=== PATIENT | male | born 1935 | race Caucasian/White ===

== ENCOUNTER 2018-06-14 23:38 | Emergency (ER) | payer OTHER ==
--- NOTE | 2018-06-15 00:18 | EDPHY ---
H & P Stated Complaint: HEMATURIA SINCE 2144 Time Seen by Provider: 06/14/18 23:58 HPI/ROS: Chief Complaint: Hematuria HPI: 83-year-old male has had 2 episodes of hematuria starting approximately 3 hr ago. He has a history of prostate cancer surgery about 15 years ago. He does take warfarin. Does not know his current INR. No back pain. No abdominal pain. No fevers or chills. No urinary urgency or frequency. No dysuria. No nausea or vomiting. Otherwise has been in his usual state of health. ROS: 10 point Review of Systems is negative except as noted in the HPI. Social History: No smoking, no alcohol, no recreational drug use Family History: non-contributory Physical Exam: Gen: Awake, Alert, No Distress HEENT: Nose: no rhinorrhea Eyes: PERRLA, EOMI Mouth: Moist mucosa Neck: Supple, no JVD Chest: nontender, lungs clear to auscultation Heart: S1, S2 normal, no murmur Abd: Soft, non-tender, no guarding Back: no CVA tenderness, no midline tenderness Ext: no edema, non-tender Skin: no rash Neuro: CN II-XII intact, Sensation grossly intact, Strength 5/5 in bilateral upper and lower extremities - Personal History Current Tetanus/Diphtheria Vaccine: Yes Current Tetanus Diphtheria and Acellular Pertussis (TDAP): Yes - Medical/Surgical History Hx Asthma: No Hx Chronic Respiratory Disease: No Hx Diabetes: No Hx Cardiac Disease: Yes Hx Renal Disease: No Hx Cirrhosis: No Hx Alcoholism: No Hx HIV/AIDS: No Hx Splenectomy or Spleen Trauma: No Other PMH: PROSTATE SURGERY. HTN. PACEMAKER - Social History Smoking Status: Never smoked Constitutional: Initial Vital Signs Temperature (C) 36.7 C 06/14/18 23:39 Heart Rate 70 06/14/18 23:39 Respiratory Rate 18 06/14/18 23:39 Blood Pressure 149/84 H 06/14/18 23:39 O2 Sat (%) 95 06/14/18 23:39 O2 Delivery Mode Room Air Allergies/Adverse Reactions: penicillin V Allergy (Verified 06/14/18 23:46) Home Medications: Medication Instructions Recorded Atenolol 06/14/18 Coumadin 06/14/18 Jantoven 06/14/18 Losartan Potassium 06/14/18 Methimazole 06/14/18 Simvastatin 06/14/18 Nitrofurantoin Monohyd/M-Cryst 100 mg PO BID #14 capsule 06/15/18 [Macrobid 100 mg Capsule] Medical Decision Making ED Course/Re-evaluation: Urinalysis shows significant white blood cells and bacteria consistent UT I. Will start on nitrofurantoin. Will refer for outpatient follow-up. Symptoms consistent with hemorrhagic cystitis. - Data Points Laboratory Results: Laboratory Results 06/15/18 00:25 06/15/18 00:11 06/15/18 06/15/18 06/15/18 00:25 00:11 00:11 WBC 9.04 10^3/uL 10^3/uL (3.80-9.50) RBC 5.10 10^6/uL 10^6/uL (4.40-6.38) Hgb 16.1 g/dL g/dL (13.7-17.5) Hct 46.9 % % (40.0-51.0) MCV 92.0 fL fL (81.5-99.8) MCH 31.6 pg pg (27.9-34.1) MCHC 34.3 g/dL g/dL (32.4-36.7) RDW 13.4 % % (11.5-15.2) Plt Count 154 10^3/uL 10^3/uL (150-400) MPV 10.5 fL fL (8.7-11.7) Neut % (Auto) Pending Lymph % (Auto) Pending [place] % (Auto) Pending Eos % (Auto) Pending Baso % (Auto) Pending Nucleat RBC Rel Count Pending Absolute Neuts (auto) Pending Absolute Lymphs (auto) Pending Absolute Monos (auto) Pending Absolute Eos (auto) Pending Absolute Basos (auto) Pending Absolute Nucleated RBC Pending Immature Gran % Pending Immature Gran # Pending Platelet Estimate Pending PT 32.1 SEC H SEC (12.0-15.0) INR 3.14 H (0.83-1.16) APTT 40.5 SEC H SEC (23.0-38.0) Sodium 139 mEq/L mEq/L (135-145) Potassium 4.4 mEq/L mEq/L (3.3-5.0) Chloride 105 mEq/L mEq/L (97-110) Carbon Dioxide 24 mEq/l mEq/l (22-31) Anion Gap 10 mEq/L mEq/L (8-16) BUN 25 mg/dL H mg/dL (7-23) Creatinine 1.1 mg/dL mg/dL (0.7-1.3) Estimated GFR > 60 Glucose 103 mg/dL H mg/dL (70-100) Calcium 9.7 mg/dL mg/dL (8.5-10.4) Urine Color Urine Appearance Urine pH Ur Specific [place] Urine Protein Urine Ketones Urine Blood Urine Nitrate Urine Bilirubin Urine Urobilinogen Ur Leukocyte Esterase Urine RBC Urine WBC Ur Epithelial Cells Urine Bacteria Urine Mucus Urine Glucose 06/14/18 23:56 WBC RBC Hgb Hct MCV MCH MCHC RDW Plt Count MPV Neut % (Auto) Lymph % (Auto) [place] % (Auto) Eos % (Auto) Baso % (Auto) Nucleat RBC Rel Count Absolute Neuts (auto) Absolute Lymphs (auto) Absolute Monos (auto) Absolute Eos (auto) Absolute Basos (auto) Absolute Nucleated RBC Immature Gran % Immature Gran # Platelet Estimate PT INR APTT Sodium Potassium Chloride Carbon Dioxide Anion Gap BUN Creatinine Estimated GFR Glucose Calcium Urine Color ANGELA Urine Appearance MODERATELY TURBID Urine pH 5.0 (5.0-7.5) Ur Specific [place] 1.017 (1.002-1.030) Urine Protein 2+ H (NEGATIVE) Urine Ketones NEGATIVE (NEGATIVE) Urine Blood 3+ H (NEGATIVE) Urine Nitrate NEGATIVE (NEGATIVE) Urine Bilirubin NEGATIVE (NEGATIVE) Urine Urobilinogen NEGATIVE EU EU (0.2-1.0) Ur Leukocyte Esterase NEGATIVE (NEGATIVE) Urine RBC 50-182 /hpf H /hpf (0-3) Urine WBC 25-50 /hpf H /hpf (0-3) Ur Epithelial Cells NONE SEEN /lpf /lpf (NONE-1+) Urine Bacteria 3+ /hpf H /hpf (NONE SEEN) Urine Mucus 2+ /lpf H /lpf (NONE-1+) Urine Glucose NEGATIVE (NEGATIVE) Departure - Departure Disposition: Home, Routine, Self-Care Clinical Impression: Urinary tract infection Condition: Good Instructions: Urinary Tract Infection in Men (ED) Additional Instructions: Please take her full course of antibiotics. Follow up with primary care physician in 4-5 days for recheck. Return to the emergency depart for increasing blood in your urine, increasing abdominal pain, fevers or chills, vomiting, or any other concerns. Referrals: Mary Kay Cifuentes MD [[facility] [place] Primary Care Provider] - As per Instructions Prescriptions: Nitrofurantoin Monohyd/M-Cryst [Macrobid 100 mg Capsule] 100 mg PO BID #14 capsule
[2018-06-15 00:27] LABS: INR 3.14 (0.83-1.16); PROTIME(PATIENT) 32.1 SEC (12.0-15.0)
[2018-06-15 00:33] LABS: PLATELET COUNT 154 10^3/uL (150-400)
[2018-06-15] MEDS ORDERED: NITROFURANTOIN 100MG PREPACK#2 BTL TAKEHOME ONE (00:54)
[2018-06-15 01:09] VITALS: BP 138/74
== END 2018-06-15 01:08 | disposition home or self-care (01) ==
DX: N39.0 Urinary tract infection, site not specified (principal); Z85.46 Personal history of malignant neoplasm of prostate; Z79.01 Long term (current) use of anticoagulants; I10 Essential (primary) hypertension; Z95.0 Presence of cardiac pacemaker